=== PATIENT | female | born 1965 | race Two or more races ===

== ENCOUNTER 2016-12-05 02:44 | Emergency (ER) | payer OTHER ==
[~2016-12-05] VITALS: Ht 154.9 cm; Wt 55.3 kg
[~2016-12-05 02:44] MED LIST: ASPIRIN81 MG ORAL; GLUCOTROL10 MG ORAL; IBUPROFEN600 MG ORAL; METOPROLOL TART25 MG ORAL; NORCO 5-325 TA1 EACH ORAL; ZOCOR40 MG ORAL
[2016-12-05 03:14] VITALS: BP 128/79
[2016-12-05] MEDS ORDERED: Acetaminophen 500mg (ES) tab ORAL ONE (03:30)
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
[2016-12-05 03:57] VITALS: BP 122/74
--- NOTE | 2016-12-07 08:42 | Diagnostic Imaging Report ---
Indications: Neck,, pain Technique: 5 views of the cervical spine. Findings: Comparison: None. Lordotic curvature is preserved.Vertebral alignment is intact. No fracture, facet subluxation or dislocation, prevertebral soft tissue swelling, or other acute changes are identified. Small osteophytes are present at the anterior margins of the C4-5 through C6-7 disc spaces without significant narrowing. Facet joints at C7-T1 appear mildly sclerotic.. Spinal canal and neural foramina appear normal in caliber. IMPRESSION: No evidence of acute cervical injury Mild degenerative spondylosis.
== END 2016-12-05 03:57 | disposition home or self-care (01) ==
LOC: EMR 03:04
DX: S16.1XXA Strain of muscle, fascia and tendon at neck level, initial encounter (principal); S00.432A Contusion of left ear, initial encounter; S00.93XA Contusion of unspecified part of head, initial encounter; I10 Essential (primary) hypertension; E11.9 Type 2 diabetes mellitus without complications; E78.00 Pure hypercholesterolemia, unspecified; Z88.6 Allergy status to analgesic agent; Z88.0 Allergy status to penicillin; Z88.2 Allergy status to sulfonamides; Z88.7 Allergy status to serum and vaccine; W50.0XXA Accidental hit or strike by another person, initial encounter; Y93.F9 Activity, other caregiving; Y92.129 Unspecified place in nursing home as the place of occurrence of the external cause; Y99.0 Civilian activity done for income or pay
CPT/HCPCS: 72052; 99283

== ENCOUNTER 2016-12-27 20:06 | Emergency (ER) | payer OTHER ==
[~2016-12-27] VITALS: Ht 154.9 cm; Wt 53.5 kg
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
[2016-12-27] MEDS ORDERED: IBUPROFEN600 MG ORAL (22:51)
[2016-12-27 22:54] VITALS: BP 128/74
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
== END 2016-12-27 22:55 | disposition home or self-care (01) ==
LOC: EMR 20:55
DX: S09.90XA Unspecified injury of head, initial encounter (principal); S00.83XA Contusion of other part of head, initial encounter; W50.0XXA Accidental hit or strike by another person, initial encounter; Y93.9 Activity, unspecified; Y92.9 Unspecified place or not applicable; Z88.2 Allergy status to sulfonamides; Z88.0 Allergy status to penicillin; Z88.8 Allergy status to other drugs, medicaments and biological substances; I10 Essential (primary) hypertension; E11.9 Type 2 diabetes mellitus without complications
CPT/HCPCS: 70150; 99283